=== PATIENT | male | born 1955 | race Caucasian/White ===

== ENCOUNTER 2022-08-14 18:33 | Emergency (ER) | payer MEDICARE, OTHER ==
[~2022-08-14] VITALS: Ht 170.2 cm; Wt 68.9 kg
[2022-08-14] MEDS ORDERED: IV NORMAL SALINE 1000 ML BAG IV ONE (18:45)
[2022-08-14] MEDS ORDERED: PROCHLORPERAZINE EDISYLATE 10 MG/2 ML VIAL IV ONE (18:45)
[2022-08-14] MEDS ORDERED: TAMS-3 PO (19:05)
[2022-08-14] MEDS ORDERED: ATOR80TA PO (19:05)
[2022-08-14] MEDS ORDERED: OMEP20TA20 PO (19:05)
[2022-08-14] MEDS ORDERED: METF-440 PO (19:05)
[2022-08-14] MEDS ORDERED: PROCHLORPERAZINE EDISYLATE 10 MG/2 ML VIAL ONE (19:09)
--- NOTE | 2022-08-14 19:18 | NUR ---
LAVONNEAR to [facility]. Patient is still for work up at this time (blood draw, EKG, urine tests, IV meds & radiology tests).
--- NOTE | 2022-08-14 19:18 | NUR ---
Sobeida cowartgeorgina in EDM - 08/14/22 at 1950 by TAVO SBAR to [facility]. Patient is still for work up at this time (blood draw, EKG, urine tests, IV line insertion & IV meds).
--- NOTE | 2022-08-14 19:20 | NUR ---
Received pt. from [facility]. Pt. in bed, aox4, but verbalized not remembering what happened prior hospital.
[2022-08-14 19:29] LABS: HEMATOCRIT 37.2 % (36.7-47.1); MEAN CORPUSCULAR HEMOGLOBIN 29.8 uug (23.8-33.4); MEAN CORPUSCULAR VOLUME 89.2 fL (73.0-96.2); PLATELET COUNT (AUTO) 372 K/uL (152-348)
--- NOTE | 2022-08-14 19:30 | NUR ---
Gave meds., urine collected and sent to lab. L AC 20g noted by paramedics.
--- NOTE | 2022-08-14 19:40 | NUR ---
ADDENDUM: Intravenous End Time Documentation: Normal saline 1 liter (IV-WO) : start time: 1939 ; end time: 2039: IV site: LAC PIV # 20 Port # 1
[2022-08-14 19:49] LABS: *BILIRUBIN,URIN NEGATIVE (NEGATIVE); *BLOOD, URINE NEGATIVE (NEGATIVE); *CLARITY,URINE CLEAR (CLEAR); *COLOR,URINE YELLOW (YELLOW); *KETONES,URINE TRACE (NEGATIVE); *UROBILINOGEN,URINE 0.2 E.U./dl (NORMAL); LEUKOCYTE ESTERASE ,URINE NEGATIVE (NEGATIVE); NITRITE, URINE NEGATIVE (NEGATIVE); UGLUCOSE TRACE (NEGATIVE)
[2022-08-14 19:52] LABS: CARBON DIOXIDE 28 mmol/L (21-32); CHLORIDE 102 mmol/L (98-107); CREATININE 1.4 mg/dL (0.6-1.3); GLUCOSE 129 mg/dL (74-106); POTASSIUM 4.7 mmol/L (3.5-5.1); UREA NITROGEN, BLOOD 14 mg/dL (7-18)
--- NOTE | 2022-08-14 19:54 | NUR ---
CT scan in process
[2022-08-14 20:01] LABS: ALANINE AMINOTRANSFERASE 28 U/L (16-63); ALKALINE PHOSPHATASE 125 U/L (50-136); ASPARTATE AMINOTRANSFERASE 21 U/L (15-37); BILIRUBIN,DIRECT 0.1 mg/dL (0.0-0.2); BILIRUBIN,TOTAL 0.4 mg/dL (0.2-1.0); TOTAL PROTEIN, SERUM 7.6 g/dL (6.4-8.2)
[2022-08-14 20:02] LABS: *AMPHETAMINE, URINE NEGATIVE (NEGATIVE); *CANNABINOID, URINE NEGATIVE (NEGATIVE); *COCCAINE, URINE NEGATIVE (NEGATIVE); *PHENCYCLIDINE SCREEN,URINE NEGATIVE (NEGATIVE)
[2022-08-14 20:09] LABS: MAGNESIUM 1.9 mg/dL (1.8-2.4)
[2022-08-14 20:13] LABS: IRON, SERUM 57 ug/dL (50-175)
[2022-08-14] MEDS ORDERED: CYANOCOBALAMIN 1000 MCG/ML VIAL IM ONE (20:45)
[2022-08-14] MEDS ORDERED: CYANOCOBALAMIN 1000 MCG/ML VIAL ONE (20:56)
[2022-08-14] MEDS ORDERED: CYAN-10 IM (21:14)
[2022-08-14] MEDS ORDERED: SYRI-29 MC (21:14)
[2022-08-14 21:20] VITALS: BP 112/80
--- NOTE | 2022-08-14 21:20 | NUR ---
Patient discharged to home in stable condition. Written and verbal after care instructions given. Patient verbalizes understanding of instructions. Stressed follow up or return to ER for worsening s/s.
[2022-08-14] MEDS ORDERED: PROC10TA29 PO (21:21)
== END 2022-08-14 21:30 | disposition home or self-care (01) ==
LOC: ER 19:20
DX: T40.414A Poisoning by fentanyl or fentanyl analogs, undetermined, initial encounter (principal); R40.4 Transient alteration of awareness; Y92.019 Unspecified place in single-family (private) house as the place of occurrence of the external cause; E11.22 Type 2 diabetes mellitus with diabetic chronic kidney disease; N18.9 Chronic kidney disease, unspecified; Z79.84 Long term (current) use of oral hypoglycemic drugs; E53.8 Deficiency of other specified B group vitamins; D64.9 Anemia, unspecified; R63.4 Abnormal weight loss
CPT/HCPCS: 99285; 96374; 70450; 71045; 96361; 80076; 80048; 82140; 82607; 83550; 83735; 85025; 85651; 84484; 36415; 93005; 83605; 80307; 81003; 96372; J3420; J0780; J7040; A4663